=== PATIENT | female | born 1960 | race Caucasian/White ===

== ENCOUNTER 2018-11-10 11:34 | Emergency (ER) | payer OTHER, MEDICAID ==
[~2018-11-10] VITALS: Ht 177.8 cm; Wt 90.7 kg
[2018-11-10 11:35] VITALS: BP_SYST 185
[2018-11-10] MEDS ORDERED: LORazepam 1 MG TABLET PO ONE (12:15)
[2018-11-10] MEDS ORDERED: cloNIDine HCL 0.1 MG TABLET PO ONE (13:15)
[2018-11-10 13:40] LABS: BASOPHILS # (AUTO) 0.1 K/uL (0.0-0.2); BASOPHILS % (AUTO) 1.1 % (0.0-2.0); EOSINOPHILS # (AUTO) 0.1 K/uL (0.0-0.4); EOSINOPHILS % (AUTO) 1.8 % (0.0-4.0); HEMATOCRIT 41.4 % (36-48); LYMPHOCYTES # (AUTO) 1.9 K/uL (1.0-5.5); LYMPHOCYTES % (AUTO) 25.9 % (20.5-51.5); MEAN CORPUSCULAR HEMOGLOBIN 30 pg (27-31); MEAN CORPUSCULAR HGB CONC 34 % (32-36); MEAN CORPUSCULAR VOLUME 89 fL (79.0-98.0); MONOCYTES # (AUTO) 0.5 K/uL (0.0-1.0); MONOCYTES % (AUTO) 7.1 % (1.7-9.3); NEUTROPHILS # (AUTO) 4.7 K/uL (1.8-7.7); NEUTROPHILS % (AUTO) 64.1 % (40.0-70.0); PLATELET COUNT (AUTO) 370 K/uL (130-430); RED BLOOD CELL COUNT(AUTO) 4.64 MIL/uL (4.2-6.2); RED CELL DISTRIBUTION WIDTH 13.4 % (9.0-15.0); WHITE BLOOD COUNT (AUTO) 7.3 K/uL (4.8-10.8)
[2018-11-10 13:58] LABS: ANION GAP 12 (5-15); CALCIUM 9.1 mg/dL (8.4-11.0); CHLORIDE 102 mmol/L (98-107); CREATININE 0.96 mg/dL (0.55-1.30); GFR AFRICAN AMERICAN 77 mL/min (>90); GLUCOSE 117 mg/dL (70-99); POTASSIUM 4.3 mmol/L (3.5-5.1); SODIUM SERUM 142 mmol/L (136-145); UREA NITROGEN, BLOOD 14 mg/dL (8-21)
[2018-11-10 14:06] LABS: ALANINE AMINOTRANSFERASE 26 U/L (12-78); ALBUMIN 3.9 g/dL (3.4-4.8); ASPARTATE AMINOTRANSFERASE 23 U/L (10-37); TOTAL BILIRUBIN 0.5 mg/dL (0.0-1.0)
[2018-11-10 14:27] VITALS: BP_SYST 143
== END 2018-11-10 14:27 | disposition home or self-care (01) ==
LOC: SED 11:34
DX: F41.9 Anxiety disorder, unspecified (principal); I10 Essential (primary) hypertension; R07.89 Other chest pain
CPT/HCPCS: 36415; 80053; 84484; 85025; 93005; 99284